=== PATIENT | male | born 1965 | race Caucasian/White ===

== ENCOUNTER 2022-05-25 05:40 | Emergency (ER) | payer MEDICAID, OTHER ==
[2022-05-25] MEDS ORDERED: Sodium Chloride 0.9% 10 ML Syringe FLUSH PRN (06:02)
[2022-05-25] MEDS ORDERED: Sodium Chloride 0.9% 2.5 ML Syringe FLUSH PRN (06:02)
[2022-05-25] MEDS ORDERED: Sodium Chloride 0.9% 1,000 ML IV ONE (06:04)
[2022-05-25] MEDS ORDERED: Ondansetron 4 MG/2 ML SDV IVPUSH ONE (06:04)
[2022-05-25 06:25] LABS: CARBON DIOXIDE,CO2 28.9 mmol/L (21.0-32.0); POTASSIUM,K 3.8 mmol/L (3.5-5.1)
[2022-05-25 07:24] VITALS: BP 120/78; PULSE 68
== END 2022-05-25 07:20 | disposition home or self-care (01) ==
LOC: MW.ED 05:40
DX: K57.92 Diverticulitis of intestine, part unspecified, without perforation or abscess without bleeding (principal)
CPT/HCPCS: 36415; 74022; 80053; 81003; 83690; 85025; 96361; 96374; 99284; J2405; J7030

== ENCOUNTER 2022-07-29 22:35 | Emergency (ER) | payer MEDICAID ==
[2022-07-29] MEDS ORDERED: Sodium Chloride 0.9% 10 ML Syringe FLUSH PRN (22:50)
[2022-07-29] MEDS ORDERED: Sodium Chloride 0.9% 2.5 ML Syringe FLUSH PRN (22:50)
[2022-07-29 22:55] VITALS: BP 146/85; PULSE 75
[2022-07-29 23:25] LABS: CARBON DIOXIDE,CO2 29.3 mmol/L (21.0-32.0); POTASSIUM,K 3.5 mmol/L (3.5-5.1)
[2022-07-30] MEDS ORDERED: Ketorolac 30 MG/ML SDV IVPUSH ONE (01:36)
== END 2022-07-30 01:54 | disposition home or self-care (01) ==
LOC: MW.ED 22:35
DX: K29.70 Gastritis, unspecified, without bleeding (principal)
CPT/HCPCS: 36415; 71045; 74176; 80053; 84484; 85025; 85379; 93005; 96374; 99284; J1885; J3490

== ENCOUNTER 2023-12-26 17:13 | Emergency (ER) | payer MEDICAID ==
[2023-12-26] MEDS: Ketorolac 30 MG/ML SDV IM ONE (18:44)
[2023-12-26 19:55] VITALS: BP 131/93; PULSE 73
== END 2023-12-26 19:55 | disposition home or self-care (01) ==
LOC: MW.ED 17:13
DX: M54.50 Low back pain, unspecified (principal); Z75.8 Other problems related to medical facilities and other health care; Z79.899 Other long term (current) drug therapy
CPT/HCPCS: 72100; 96372; 99283; J1885

== ENCOUNTER 2023-12-29 04:25 | Emergency (ER) | payer MEDICAID ==
[2023-12-29 04:46] LABS: APPEARANCE,URINE CLEAR; BILIRUBIN,URINE NEGATIVE (NEGATIVE); COLOR,URINE YELLOW; GLUCOSE,URINE NEGATIVE (NEGATIVE); KETONES,URINE NEGATIVE (NEGATIVE); LEUKOCYTE ESTERASE,URINE NEGATIVE (NEGATIVE); NITRITE,URINE NEGATIVE (NEGATIVE); OCCULT BLOOD,URINE NEGATIVE (NEGATIVE); PROTEIN,URINE NEGATIVE (NEGATIVE); UROBILINOGEN,URINE 0.2 EU/dL (<2.0)
[2023-12-29 04:54] LABS: BASOPHILS ABSOLUTE AUTO 0.11 K/uL (0.00-0.20); BASOPHILS PERCENT AUTO 1.6 % (0.0-1.0); EOSINOPHILS ABSOLUTE AUTO 0.31 K/uL (0.00-0.45); EOSINOPHILS PERCENT AUTO 4.4 % (0.0-6.0); HEMATOCRIT 43.8 % (42.0-52.0); HEMOGLOBIN 15.6 g/dL (14.0-18.0); IMMATURE GRAN ABSOLUTE AUTO 0.03 K/uL (0.00-0.05); IMMATURE GRAN PERCENT AUTO 0.4 % (0.0-0.4); LYMPHOCYTES ABSOLUTE AUTO 2.38 K/uL (1.00-4.80); MEAN CORPUSCULAR HEMOGLOBIN 31.6 pg (28.0-32.0); MEAN CORPUSCULAR HGB CONC 35.6 g/dL (32.0-36.0); MEAN CORPUSCULAR VOLUME 88.8 fL (83.0-99.0); MEAN PLATELET VOLUME 10.3 fL (9.4-12.4); MONOCYTES ABSOLUTE AUTO 0.99 K/uL (0.00-0.80); MONOCYTES PERCENT AUTO 14.1 % (0.0-8.0); NEUTROPHILS ABSOLUTE AUTO 3.18 K/uL (1.80-7.70); NEUTROPHILS PERCENT AUTO 45.5 % (41.0-71.0); PLATELET COUNT,PLT 187 K/uL (150-400); RED BLOOD CELL COUNT 4.93 M/uL (4.52-5.90)
[2023-12-29] MEDS: Sodium Chloride 0.9% 10 ML Syringe FLUSH PRN (04:56)
[2023-12-29] MEDS: Sodium Chloride 0.9% 2.5 ML Syringe FLUSH PRN (04:56)
[2023-12-29 05:17] LABS: ALBUMIN 3.1 g/dL (3.4-5.0); BILIRUBIN TOTAL 0.4 mg/dL (0.2-1.0); CALCIUM 8.1 mg/dL (8.5-10.1); CARBON DIOXIDE,CO2 27.9 mmol/L (21.0-32.0); EST CRCL DRUG DOSING (CG) 85.17 mL/min; POTASSIUM,K 4.1 mmol/L (3.5-5.1); PROTEIN TOTAL,TP 6.1 g/dL (6.4-8.2)
[2023-12-29] MEDS: Lidocaine 4% 1 each Patch TOP ONE (05:21)
[2023-12-29 06:07] VITALS: BP 118/84; PULSE 68
== END 2023-12-29 06:07 | disposition home or self-care (01) ==
LOC: MW.ED 04:25
DX: M54.50 Low back pain, unspecified (principal); Z90.49 Acquired absence of other specified parts of digestive tract; Z75.8 Other problems related to medical facilities and other health care
CPT/HCPCS: 36415; 80053; 81003; 85025; 96374; 99283; A9270; J3360; J3490; 99284

== ENCOUNTER 2024-09-09 09:53 | Emergency (ER) | payer MEDICAID ==
[2024-09-09] MEDS: Sodium Chloride 0.9% 1,000 ML IV ONE (10:35)
[2024-09-09] MEDS: Ondansetron 4 MG/2 ML SDV IVPUSH ONE (10:35)
[2024-09-09] MEDS: Pantoprazole 40 MG in Sodium Chloride 0.9% 10 ML IVPUSH ONE (10:38)
[2024-09-09] MEDS: Morphine 2 MG/ML SYRINGE IVPUSH PRN (10:38)
[2024-09-09 10:41] LABS: BASOPHILS ABSOLUTE AUTO 0.07 K/uL (0.00-0.20); BASOPHILS PERCENT AUTO 0.5 % (0.0-1.0); EOSINOPHILS ABSOLUTE AUTO 0.02 K/uL (0.00-0.45); EOSINOPHILS PERCENT AUTO 0.1 % (0.0-6.0); HEMATOCRIT 49.3 % (42.0-52.0); HEMOGLOBIN 17.6 g/dL (14.0-18.0); IMMATURE GRAN ABSOLUTE AUTO 0.03 K/uL (0.00-0.05); IMMATURE GRAN PERCENT AUTO 0.2 % (0.0-0.4); LYMPHOCYTES ABSOLUTE AUTO 0.38 K/uL (1.00-4.80); LYMPHOCYTES PERCENT AUTO 2.8 % (24.0-44.0); MEAN CORPUSCULAR HEMOGLOBIN 31.3 pg (28.0-32.0); MEAN CORPUSCULAR HGB CONC 35.7 g/dL (32.0-36.0); MEAN CORPUSCULAR VOLUME 87.6 fL (83.0-99.0); MEAN PLATELET VOLUME 10.3 fL (9.4-12.4); MONOCYTES ABSOLUTE AUTO 0.92 K/uL (0.00-0.80); MONOCYTES PERCENT AUTO 6.9 % (0.0-8.0); NEUTROPHILS ABSOLUTE AUTO 12.01 K/uL (1.80-7.70); NEUTROPHILS PERCENT AUTO 89.5 % (41.0-71.0); PLATELET COUNT,PLT 197 K/uL (150-400); RED BLOOD CELL COUNT 5.63 M/uL (4.52-5.90); WHITE BLOOD CELL COUNT,WBC 13.43 K/uL (3.9-11.3)
[2024-09-09 11:11] LABS: INR 1.04 (0.86-1.11)
[2024-09-09 11:27] LABS: A/G RATIO 1.1 (0.9-1.6); ALBUMIN 3.8 g/dL (3.4-5.0); BILIRUBIN TOTAL 0.7 mg/dL (0.2-1.0); CALCIUM 8.5 mg/dL (8.5-10.1); CARBON DIOXIDE,CO2 23.7 mmol/L (21.0-32.0); CREATININE 1.2 mg/dL (0.8-1.3); EST CRCL DRUG DOSING (CG) 70.97 mL/min; MAGNESIUM 1.7 mg/dL (1.8-2.4); POTASSIUM,K 4.2 mmol/L (3.5-5.1); PROTEIN TOTAL,TP 7.3 g/dL (6.4-8.2)
[2024-09-09] MEDS: Iopamidol 755 MG/ML 500 ML Multipack Bottle IVPUSH STA (12:15)
[2024-09-09] MEDS: Acetaminophen 500 MG Tab PO ONE (12:51)
[2024-09-09] MEDS: Ibuprofen 600 MG Tab PO ONE (12:51)
[2024-09-09 13:49] LABS: APPEARANCE,URINE CLEAR; BILIRUBIN,URINE NEGATIVE (NEGATIVE); COLOR,URINE YELLOW; GLUCOSE,URINE NEGATIVE (NEGATIVE); KETONES,URINE TRACE mg/dL (NEGATIVE); LEUKOCYTE ESTERASE,URINE NEGATIVE (NEGATIVE); NITRITE,URINE NEGATIVE (NEGATIVE); OCCULT BLOOD,URINE TRACE-INTACT (NEGATIVE); PH,URINE 5.5 (5.0-8.0); PROTEIN,URINE NEGATIVE (NEGATIVE); UROBILINOGEN,URINE 0.2 EU/dL (<2.0)
[2024-09-09 14:13] LABS: EPITHELIAL CELLS,URINE RARE (NONE-FEW); RBC,URINE 0-1 (0-2/HPF); WBC,URINE 0-1 (0-5/HPF)
[2024-09-09 14:14] LABS: BACTERIA,URINE RARE (NEGATIVE)
[2024-09-09 14:52] VITALS: BP 100/61; PULSE 101
== END 2024-09-09 14:30 | disposition home or self-care (01) ==
LOC: MW.ED 09:53
DX: A08.4 Viral intestinal infection, unspecified (principal); D72.829 Elevated white blood cell count, unspecified; E86.0 Dehydration; Z79.899 Other long term (current) drug therapy; Z90.49 Acquired absence of other specified parts of digestive tract
CPT/HCPCS: 36415; 74177; 80053; 81001; 83605; 83690; 83735; 85025; 85610; 87428; 96361; 96374; 96375; 99284; A9270; J2270; J2405; J2470; J7030; Q9967

== ENCOUNTER 2025-06-30 18:48 | Emergency (ER) | payer MEDICAID ==
[2025-06-30] MEDS ORDERED: Sodium Chloride 0.9% 10 ML Syringe FLUSH PRN (19:02)
[2025-06-30] MEDS ORDERED: Sodium Chloride 0.9% 2.5 ML Syringe FLUSH PRN (19:02)
[2025-06-30 19:23] LABS: BASOPHILS ABSOLUTE AUTO 0.14 K/uL (0.00-0.20); BASOPHILS PERCENT AUTO 1.8 % (0.0-1.0); EOSINOPHILS ABSOLUTE AUTO 0.21 K/uL (0.00-0.45); EOSINOPHILS PERCENT AUTO 2.6 % (0.0-6.0); IMMATURE GRAN ABSOLUTE AUTO 0.04 K/uL (0.00-0.05); IMMATURE GRAN PERCENT AUTO 0.5 % (0.0-0.4); LYMPHOCYTES ABSOLUTE AUTO 2.46 K/uL (1.00-4.80); LYMPHOCYTES PERCENT AUTO 30.8 % (24.0-44.0); MEAN PLATELET VOLUME 10.2 fL (9.4-12.4); MONOCYTES ABSOLUTE AUTO 0.91 K/uL (0.00-0.80); MONOCYTES PERCENT AUTO 11.4 % (0.0-8.0); NEUTROPHILS ABSOLUTE AUTO 4.23 K/uL (1.80-7.70); NEUTROPHILS PERCENT AUTO 52.9 % (41.0-71.0); NRBC ABSOLUTE 0.00 K/uL (0.00-0.02); NRBC PERCENT 0.0 /100WBC (0.0-0.2); PLATELET COUNT,PLT 208 K/uL (150-400); RED BLOOD CELL COUNT 5.55 M/uL (4.52-5.90); WHITE BLOOD CELL COUNT,WBC 7.99 K/uL (3.9-11.3)
[2025-06-30 19:55] LABS: A/G RATIO 1.1 (0.9-1.6); ALANINE AMINOTRANSFERASE,ALT 54.0 IU/L (14-63); ASPARTATE AMNIOTRANSFERASE,AST 32.0 IU/L (15-37); BILIRUBIN TOTAL 0.6 mg/dL (0.2-1.0); BLOOD UREA NITROGEN,BUN 6.0 mg/dL (7.0-18.0); CARBON DIOXIDE,CO2 27.5 mmol/L (21.0-32.0); CHLORIDE,CL 105.0 mmol/L (98-107); CREATININE 1.0 mg/dL (0.8-1.3); EST CRCL DRUG DOSING (CG) 84.15 mL/min; GLUCOSE RANDOM 91.0 mg/dL (74-106); POTASSIUM,K 3.8 mmol/L (3.5-5.1); PROTEIN TOTAL,TP 7.5 g/dL (6.4-8.2); SODIUM,NA 143.0 mmol/L (136-148)
[2025-06-30 19:58] LABS: INR 1.03 (0.86-1.11)
[2025-06-30 20:08] LABS: ESTIMATED GFR 88.0 mL/min (>60)
[2025-06-30] MEDS ORDERED: fentaNYL 100 MCG/2 ML SDV ONE (20:15)
[2025-06-30] MEDS ORDERED: Propofol 200 MG/20 ML SDV ONE (20:15)
[2025-06-30] MEDS ORDERED: Succinylcholine/Sod PF 100 MG/5 ML SYRINGE IV ONE (20:16)
[2025-06-30] MEDS: Pantoprazole 40 MG in Sodium Chloride 0.9% 10 ML IVPUSH ONE (20:44)
[2025-06-30 21:10] VITALS: BP 129/91; PULSE 77
== END 2025-06-30 21:42 | disposition home or self-care (01) ==
LOC: MW.ED 18:48
DX: T18.128A Food in esophagus causing other injury, initial encounter (principal); K21.9 Gastro-esophageal reflux disease without esophagitis; Z79.899 Other long term (current) drug therapy; Z90.49 Acquired absence of other specified parts of digestive tract
CPT/HCPCS: 36415; 71045; 80053; 85025; 85610; 93005; 96374; 96375; 99284; J1610; J2470; J7030; 99283; A4216; J0330; J2704; J3010